=== PATIENT | female | born 2000 | race Two or more races ===

== ENCOUNTER 2024-11-14 09:41 | Outpatient (AMB) | payer MEDICAID, SELFPAY ==
[2024-11-14 09:48] VITALS: BP 118/80; PULSE 96; RESP 18; TEMP 36.4; O2SAT 98; BMI 31.8
--- NOTE | 2024-11-14 09:48 | OBCLNT_ITS ---
Vital Signs 11/14/24 09:48 Height 1.57 m Height Method Stated Weight 78.925 kg Weight Measurement Method Standing Scale BMI 31.8 BP 118/80 Blood Pressure Source Automatic Cuff Blood Pressure Location Left Upper Arm Position Sitting Respiration 18 Pulse 96 Pulse Source Monitor Temp 97.6 F Temp Source Oral Pulse Oximetry (%) 98 Oxygen Delivery Method Room Air Allergies/Home Meds Allergies & Medications Allergies No Known Allergies Allergy (Verified 11/14/24 09:49) Medication Reconciliation No Known Home Medications 11/14/24 [History Confirmed 11/14/24] Intake Visit Data Collection New Patient or Established: New Patient (never been to [facility]) Reason for Visit:: CARE Seen by Clinical Staff ONLY (RN/MA): No Linux Unix System Administrator Required: No Do You Feel Safe at Home: Yes Authorities Contacted: N/A PCP or OBGYN visit in last 3 months: Yes Hx Now: Yes Are you currently on any form of Control: No Last menstrual period: 04/28/24 Pain Present Currently: No Pain Scale Used: [place]-Us/Numerical Pain scale:: 0 Smoking Status Smoking Status: Former smoker Questionnaires Covid-19 Vaccine Questionnaire Has patient been vacinated for Covid-19 Have you been vacinated for Covid-19: No PHQ-9 PHQ-2 Over the last 2 weeks, how often have you been bothered by any of the following problems? 1. Little interest or pleasure in doing things: not at all 2. Feeling down, depressed, or hopeless: not at all Total score: 0 PHQ-9 3. Trouble falling or staying asleep, or sleeping too much: Not at all 4. Feeling tired or having little energy: Not at all 5. Poor appetite or overeating: Not at all 6. Feeling bad about yourself - or that you are a failure or have let yourself or your family down: Not at all 7. Trouble concentrating on things, such as reading the newspaper or watching television: Not at all 8. Moving or speaking so slowly that other people could have noticed? - Or the opposite - being so fidgety or restless that you have been moving around a lot more than usual: not at all 9. Thoughts that you would be better off or of hurting yourself in some way: Not at all Total score: 0 Source: Developed by Drs. Francisco Nunez, Anabel Kaiser, Kenyon Atkins and colleagues, with an educational dayana from [employer]. Depression screen completed yes Social History Living Situation History Lives With: Family Housing: House Tobacco History Smoking Status: Former smoker Second Hand Smoke Exposure: Yes Alcohol History Alcohol Intake: Never Substance Use History Substance Use: MARIJUANA Domestic Abuse History Do You Feel Safe at Home: Yes Past Medical History Past Medical History Have you ever been diagnosed with any of the following: Neurological Problems Cerebrovascular Accident (CVA): No Transient Ischemic Attacks (TIA): No Dementia: No Alzheimer's Disease: No Parkinson's Disease: No Brain Tumor: No Meningitis: No Seizures: No Haider's Palsy: No Cardiology Problems Myocardial Infarction: No Cardiac Arrhythmia: No Atrial Fibrillation: No Angina: No Heart Murmur: No Coronary Artery Disease: No Atherosclerotic Heart Disease: No Peripheral Vascular Disease: No Hypercholesterolemia: No Aneurysm: No Congestive Heart Failure: No Congenital Heart Disease: No Valvular Heart Disease: No Rheumatic Fever: No Hypertension: No (GRANDMOTHER) Respiratory Problems Chronic Obstructive Pulmonary Disease (COPD): No Asthma: No Bronchitis: No Tuberculosis: No Hx Cough: No Cough: No Wheezing: No Chest Deformities: No Smoking: Yes (MARIJUANA) Smoking Exposure: Yes Stomache/Intestinal Problems Liver Cancer: No Hepatitis: No Cirrhosis: No Pancreatic Cancer: No Pancreatitis: No Celiac Disease: No Gall Bladder Disease: No Gastrointestinal Bleed: No Genital/Urinary Problems Chronic Kidney Disease: No Renal Disease: No Kidney Stones: No Reproductive Problems Breast Cancer: No Endometriosis: No Fibroids: No Genital Herpes: No Gonorrhea: No Polycystic Ovarian Syndrome: No Previous Pregnancies: Yes Syphilis: No Uterine Prolapse: No Musculoskeletal Problems Muscular Dystrophy: No Myasthenia Gravis: No Marfan's Syndrome: No Bone Cancer: No Arthritis: No Rheumatoid Arthritis: No Head,Eye,Nose,Throat Problems Cataracts: No Glaucoma: No Blind: No Retinal Detachment: No Endocrine Problems Diabetes Mellitus Type 1: No Diabetes Mellitus Type 2: No (GRANDMOTHER) Blood Problems Anemia: No Leukemia: No Hemophilia: No Thalassemia: No Sickle Cell Disease: No Clotting Problems: No Psychologic Problems Schizophrenia: No Recreational Drug Use: No Bipolar Disorder: No Depression: No Anxiety: No Behavior Problems: No Self-Mutilation: No Attention Deficit Disorder: No Attention Deficit Hyperactivity Disorder: No Depression: No Post Traumatic Stress Disorder: No Eating Disorder: No Other Problems Hospitalization: No Autoimmune Disease: No Down Syndrome: No Autism: No Surgical History Angioplasty: No Appendectomy: No Bariatric Surgery: No Breast Surgery: No History of Present Illness HPI Narrative This is a 24-year-old 2 para 0 who comes for her first clinic visit today at [facility]. Her patient's last period was April 24, 2024. Giving due date January 29, 2025. First visit was at 7 weeks. Patient had an ultrasound and that confirmed dates Patient denies surgeries. Patient denies past medical history. Reports marijuana use prior to . Patient is A+, antibody screen negative, RPR nonreactive, rubella immune, hepatitis B negative, hep C negative, HIV was negative. Her GC and Chlamydia were negative. Third trimester labs were reviewed and are normal. Patient has been followed and [facility] for anatomy scan and NT scan. Carrier screens and Nipt were negative OB Initial Visit Menstrual History Menstrual reliability: definite Flow: normal Menstrual regularity: regular Monthly: Yes Age at menarche: 10 On control pills at conception: No Associated symptoms (LMP): Reports breast tenderness and irritability OB History : 2 Para: 0 Hx Total # of Abortions (Spontaneous & Elective): 1 # of Living Children: 0 Infection History & Risk Evaluation History of STDs: none Genetic Screening & History Genetic Screening/Teratology Counseling - Includes patient, baby's father, or anyone in either family with: 1. Patient's age 35 years or older as of estimated date of delivery: No 2. Thalassemia (Zimbabwean, Malagasy, Mediterranean, or Background); MCV less than 80: No 3. Neural Tube Defect (Meningomyelocele, Spina Bifida, or Anencephaly): No 4. Congenital Heart Defect: No 5. Down Syndrome: No 6. Abad-Sachs (Ashkenazi Rastafarian, Cajun, Telugu [place]): No 7. Lucas Disease (Ashkenazi Rastafarian): No 8. Familial Dysautonomia (Ashkenazi Rastafarian): No 9. Sickle Cell Disease or Trait (): No 10. Hemophilia or other blood disorders: No 11. Muscular Dystrophy: No 12. Cystic Fibrosis: No 13. Clayton's Chorea: No 14. Mental Retardation/Autism: No 15. Other inherited genetic or chromosomal disorder: No 16. Maternal Metabolic Disorder (EG,TYPE 1 Diabetes, PKU): No 17. Patient or baby's father had a child with defects not listed above: No 18. Recurrent loss or a stillbirth: No 19. Medications (including supplements, vitamins, herbs or otc drugs)/illicit/recreational drugs/alcohol since last menstrual period: No 20. Any other: No Infection History 1. Live with someone with TB or exposed to TB: No 2. Rash or viral illness since last menstrual period: No 3. Hepatitis B,C: No Other (see comments) Source: [employer] OB Flowsheet OB Flowsheet Initial Weight: Not Recorded Date -?-?-?-?-?-?-?-?-?-?-?-?- EGA Weight Edema CTX Effacement BP Fundal ht Pres Dilation Effacement Station Visit Note Alb Glu FHR Mov 11/14/24 -?-?-?-?-?-?-?-?-?-?-?-?- 29w 1d 78.925 kg absent absent 118/80 29 cephalic Patient asked if fetus active. Denies labor signs and symptoms. Continue to take iron twice a day. Discussed high iron foods with patient. Increase fluids. Walk 20 minutes a day. Reviewed 1 hour GTT lab results with patient. I discussed Tdap with patient and patient will consider Tdap for next visit 145 active Review of Systems Review of Systems Systems Reviewed: All systems reviewed, normal except as documented Psychiatric Psychiatric: Reports irritability Assessment & Plan Diagnosis / Problem List (1) : Status: Acute Qualifiers: Weeks of gestation: 29 weeks Qualified Code(s): Z3A.29 - 29 weeks ges tation of Plan Advised patient to continue iron twice a day. Discussed high iron foods. Increase fluids. Discussed regular exercise. Return precautions discussed with patient. I discussed Tdap with patient and patient will consider for next visit. Return in 3 weeks for OB check Additional Plan Follow Up: 3 Weeks Office Procedures OB Clinic LOC & Office Proc's Nursing/Assessment Patient Status: Initial/New Patient OB Clinic Nursing Assessment: Medication Reconciliation, Update PMH in EMR and Vital Signs OB Clinic Coordination of Care: Complex Care and Chronic Disease 1-5, Consent,records obtained, informed consent, Education Simp Pt/Fam, Results/Orders obtained and Staff clarify orders Special Needs: Heart tones New Patient Charge New Patient Point Assignment: 1119 New Patient Point Charge: ASSISTANT PROFESSOR OF ARCHAEOLOGY Level 4 ([id number])
--- NOTE | 2024-12-05 09:10 | AMB.OBVISIT ---
Vital Signs 11/14/24 09:48 12/05/24 09:18 Height 1.57 m Height Method Stated Weight 78.925 kg Weight Measurement Method Standing Scale BMI 31.8 BP 118/80 118/80 Blood Pressure Source Automatic Cuff Blood Pressure Location Left Upper Arm Position Sitting Respiration 18 18 Pulse 96 96 Pulse Source Monitor Temp 97.6 F 97.6 F Temp Source Oral Pulse Oximetry (%) 98 98 Oxygen Delivery Method Room Air Allergies/Home Meds Allergies & Medications Allergies No Known Allergies Allergy (Verified 12/05/24 09:05) Medication Reconciliation vits no.126-ferrous fum 28 mg iron-folic acid 800 mcg tablet (Classic ) tab PO 12/05/24 [History Confirmed 12/05/24] Intake Visit Data Collection Do You Feel Safe at Home: Yes Smoking Status Smoking Status: Former smoker Questionnaires Covid-19 Vaccine Questionnaire Has patient been vacinated for Covid-19 Have you been vacinated for Covid-19: No PHQ-9 PHQ-2 Over the last 2 weeks, how often have you been bothered by any of the following problems? 1. Little interest or pleasure in doing things: not at all PHQ-9 3. Trouble falling or staying asleep, or sleeping too much: Not at all 4. Feeling tired or having little energy: Not at all 5. Poor appetite or overeating: Not at all 6. Feeling bad about yourself - or that you are a failure or have let yourself or your family down: Not at all 7. Trouble concentrating on things, such as reading the newspaper or watching television: Not at all 8. Moving or speaking so slowly that other people could have noticed? - Or the opposite - being so fidgety or restless that you have been moving around a lot more than usual: not at all Source: Developed by Drs. Francisco Nunez, Anabel Kaiser, Kenyon Atkins and colleagues, with an educational dayana from [employer]. Social History Living Situation History Lives With: Family Housing: House Tobacco History Smoking Status: Former smoker Second Hand Smoke Exposure: Yes Alcohol History Alcohol Intake: Never Substance Use History Substance Use: MARIJUANA Domestic Abuse History Do You Feel Safe at Home: Yes Past Medical History Past Medical History Have you ever been diagnosed with any of the following: Neurological Problems Cerebrovascular Accident (CVA): No Transient Ischemic Attacks (TIA): No Dementia: No Alzheimer's Disease: No Parkinson's Disease: No Brain Tumor: No Meningitis: No Seizures: No Haider's Palsy: No Cardiology Problems Myocardial Infarction: No Cardiac Arrhythmia: No Atrial Fibrillation: No Angina: No Heart Murmur: No Coronary Artery Disease: No Atherosclerotic Heart Disease: No Peripheral Vascular Disease: No Hypercholesterolemia: No Aneurysm: No Congestive Heart Failure: No Congenital Heart Disease: No Valvular Heart Disease: No Rheumatic Fever: No Hypertension: No (GRANDMOTHER) Respiratory Problems Chronic Obstructive Pulmonary Disease (COPD): No Asthma: No Bronchitis: No Tuberculosis: No Hx Cough: No Cough: No Wheezing: No Chest Deformities: No Smoking: Yes (MARIJUANA) Smoking Exposure: Yes Stomache/Intestinal Problems Liver Cancer: No Hepatitis: No Cirrhosis: No Pancreatic Cancer: No Pancreatitis: No Celiac Disease: No Gall Bladder Disease: No Gastrointestinal Bleed: No Genital/Urinary Problems Chronic Kidney Disease: No Renal Disease: No Kidney Stones: No Reproductive Problems Breast Cancer: No Endometriosis: No Fibroids: No Genital Herpes: No Gonorrhea: No Polycystic Ovarian Syndrome: No Previous Pregnancies: Yes Syphilis: No Uterine Prolapse: No Musculoskeletal Problems Muscular Dystrophy: No Myasthenia Gravis: No Marfan's Syndrome: No Bone Cancer: No Arthritis: No Rheumatoid Arthritis: No Head,Eye,Nose,Throat Problems Cataracts: No Glaucoma: No Blind: No Retinal Detachment: No Endocrine Problems Diabetes Mellitus Type 1: No Diabetes Mellitus Type 2: No (GRANDMOTHER) Blood Problems Anemia: No Leukemia: No Hemophilia: No Thalassemia: No Sickle Cell Disease: No Clotting Problems: No Psychologic Problems Schizophrenia: No Recreational Drug Use: No Bipolar Disorder: No Depression: No Anxiety: No Behavior Problems: No Self-Mutilation: No Attention Deficit Disorder: No Attention Deficit Hyperactivity Disorder: No Depression: No Post Traumatic Stress Disorder: No Eating Disorder: No Other Problems Hospitalization: No Down Syndrome: No Autism: No Surgical History Angioplasty: No Appendectomy: No Bariatric Surgery: No Breast Surgery: No Visit OB Visit Log OB Flowsheet Initial Weight: Not Recorded Date <del>?</del> EGA Weight Edema CTX Effacement BP Fundal ht Pres Dilation Effacement Station Visit Note Alb Glu FHR Mov 11/14/24 <del>?</del> 28w 1d 78.925 kg absent absent 118/80 118/80 29 cephalic Patient asked if fetus active. Denies labor signs and symptoms. Continue to take iron twice a day. Discussed high iron foods with patient. Increase fluids. Walk 20 minutes a day. Reviewed 1 hour GTT lab results with patient. I discussed Tdap with patient and patient will consider Tdap for next visit 145 active SUZETTE Calculator Estimated Delivery Date Method Current WG Current Estimate 02/05/25 Ultrasound #1 31w 1d Other Estimates 01/29/25 LMP (Certain) 32w 1d Assessment & Plan Diagnosis / Problem List (1) Normal in multigravida in third trimester: Status: Acute Additional Plan Follow Up: 3 Weeks Office Procedures OB Clinic LOC & Office Proc's Nursing/Assessment Patient Status: Initial/New Patient OB Clinic Nursing Assessment: Medication Reconciliation, Update PMH in EMR and Vital Signs OB Clinic Coordination of Care: Complex Care and Chronic Disease 1-5, Consent,records obtained, informed consent, Education Simp Pt/Fam, Results/Orders obtained and Staff clarify orders Special Needs: Heart tones New Patient Charge New Patient Point Assignment: 1119 New Patient Point Charge: CLUB WAITER/WAITRESS Level 4 ([id number])
== END 2024-11-14 10:15 | disposition home or self-care (01) ==
LOC: HODSOBC 09:41
PROVIDERS: PCP Advanced Practice Midwife; Referring Provider Advanced Practice Midwife; Supervising Provider Advanced Practice Midwife; Visit Provider Advanced Practice Midwife
DX: Z34.83 Encounter for supervision of other normal pregnancy, third trimester (principal); Z3A.29 29 weeks gestation of pregnancy
CPT/HCPCS: 99204; G0463

== ENCOUNTER 2024-12-05 08:55 | Outpatient (AMB) | payer MEDICAID, SELFPAY ==
[2024-12-05 09:04] VITALS: BP 124/84; PULSE 97; RESP 18; TEMP 36.3; O2SAT 99; BMI 32.2
--- NOTE | 2024-12-05 09:04 | OBCLNT_ITS ---
Vital Signs 12/05/24 09:04 Height 1.57 m Height Method Stated Weight 79.492 kg Weight Measurement Method Standing Scale BMI 32.2 BP 124/84 Blood Pressure Source Automatic Cuff Blood Pressure Location Right Upper Arm Position Sitting Respiration 18 Pulse 97 Pulse Source Monitor Temp 97.4 F Temp Source Temporal Artery Scan Pulse Oximetry (%) 99 Oxygen Delivery Method Room Air Allergies/Home Meds Allergies & Medications Allergies No Known Allergies Allergy (Verified 12/05/24 09:05) Medication Reconciliation vits no.126-ferrous fum 28 mg iron-folic acid 800 mcg tablet (Classic ) tab PO 12/05/24 [History Confirmed 12/05/24] Intake Visit Data Collection New Patient or Established: Established Patient (seen at [facility] within 3 years) Reason for Visit:: obc Do You Feel Safe at Home: Yes Authorities Contacted: N/A PCP or OBGYN visit in last 3 months: Yes Pain Present Currently: No Smoking Status Smoking Status: Former smoker Questionnaires Covid-19 Vaccine Questionnaire Has patient been vacinated for Covid-19 Have you been vacinated for Covid-19: Yes PHQ-9 PHQ-2 Over the last 2 weeks, how often have you been bothered by any of the following problems? 1. Little interest or pleasure in doing things: not at all 2. Feeling down, depressed, or hopeless: not at all Total score: 0 PHQ-9 8. Moving or speaking so slowly that other people could have noticed? - Or the opposite - being so fidgety or restless that you have been moving around a lot more than usual: not at all Source: Developed by Drs. Francisco Nunez, Anabel Kaiser, Kenyon Atkins and colleagues, with an educational dayana from [employer]. Depression screen completed yes Social History Living Situation History Lives With: Family Housing: House Tobacco History Smoking Status: Former smoker Second Hand Smoke Exposure: Yes Alcohol History Alcohol Intake: Never Substance Use History Substance Use: MARIJUANA Domestic Abuse History Do You Feel Safe at Home: Yes Past Medical History Past Medical History Have you ever been diagnosed with any of the following: Neurological Problems Cerebrovascular Accident (CVA): No Transient Ischemic Attacks (TIA): No Dementia: No Alzheimer's Disease: No Parkinson's Disease: No Brain Tumor: No Meningitis: No Seizures: No Haider's Palsy: No Cardiology Problems Myocardial Infarction: No Cardiac Arrhythmia: No Atrial Fibrillation: No Angina: No Heart Murmur: No Coronary Artery Disease: No Atherosclerotic Heart Disease: No Peripheral Vascular Disease: No Hypercholesterolemia: No Aneurysm: No Congestive Heart Failure: No Congenital Heart Disease: No Valvular Heart Disease: No Rheumatic Fever: No Hypertension: No (GRANDMOTHER) Respiratory Problems Chronic Obstructive Pulmonary Disease (COPD): No Asthma: No Bronchitis: No Tuberculosis: No Hx Cough: No Cough: No Wheezing: No Chest Deformities: No Smoking: Yes (MARIJUANA) Smoking Exposure: Yes Stomache/Intestinal Problems Liver Cancer: No Hepatitis: No Cirrhosis: No Pancreatic Cancer: No Pancreatitis: No Celiac Disease: No Gall Bladder Disease: No Gastrointestinal Bleed: No Genital/Urinary Problems Renal Disease: No Kidney Stones: No Reproductive Problems Breast Cancer: No Endometriosis: No Fibroids: No Genital Herpes: No Gonorrhea: No Polycystic Ovarian Syndrome: No Previous Pregnancies: Yes Syphilis: No Uterine Prolapse: No Musculoskeletal Problems Muscular Dystrophy: No Myasthenia Gravis: No Marfan's Syndrome: No Bone Cancer: No Arthritis: No Rheumatoid Arthritis: No Head,Eye,Nose,Throat Problems Cataracts: No Glaucoma: No Blind: No Retinal Detachment: No Endocrine Problems Diabetes Mellitus Type 1: No Diabetes Mellitus Type 2: No (GRANDMOTHER) Blood Problems Anemia: No Leukemia: No Hemophilia: No Thalassemia: No Sickle Cell Disease: No Clotting Problems: No Psychologic Problems Schizophrenia: No Recreational Drug Use: No Bipolar Disorder: No Depression: No Anxiety: No Behavior Problems: No Self-Mutilation: No Attention Deficit Disorder: No Attention Deficit Hyperactivity Disorder: No Depression: No Post Traumatic Stress Disorder: No Eating Disorder: No Other Problems Hospitalization: No Down Syndrome: No Autism: No Surgical History Angioplasty: No Appendectomy: No Bariatric Surgery: No Breast Surgery: No Visit OB Visit Log OB Flowsheet Initial Weight: Not Recorded Date -?-?-?-?-?-?-?-?-?-?-?-?- EGA Weight Edema CTX Effacement BP Fundal ht Pres Dilation Effacement Station Visit Note Alb Glu FHR Mov 11/14/24 -?-?-?-?-?-?-?-?-?-?-?-?- 28w 1d 78.925 kg absent absent 118/80 29 cephalic Patient asked if fetus active. Denies labor signs and symptoms. Continue to take iron twice a day. Discussed high iron foods with patient. Increase fluids. Walk 20 minutes a day. Reviewed 1 hour GTT lab results with patient. I discussed Tdap with patient and patient will consider Tdap for next visit 145 active 12/05/24 -?-?-?-?-?-?-?-?-?-?-?-?- 31w 1d 79.492 kg absent absent 124/84 30 cephalic Reports good movement. Denies labor symptoms. Denies leaking or bleeding. Patient elects to have Tdap today. Discussed diet and weight gain. Courage patient to walk 40 minutes a day. Tdap vaccine today. Schedule ultrasound for growth. And return in 2 weeks. UA: pro-,NIT-, Natali:trace 145 active SUZETTE Calculator Estimated Delivery Date Method Current WG Current Estimate 02/05/25 Ultrasound #1 31w 1d Other Estimates 01/29/25 LMP (Certain) 32w 1d Assessment & Plan Diagnosis / Problem List (1) Normal in multigravida in third trimester: Status: Acute (2) : Status: Acute Qualifiers: Weeks of gestation: 29 weeks Qualified Code(s): Z3A.29 - 29 weeks gestation of Plan Tdap today. Encourage patient to walk 40 minutes a day. Discussed decreasing sugary foods. kick count discussed with patient. Continue vitamins. Ultrasound to evaluate growth. Return in 2 weeks OB check Additional Plan Follow Up: 2 Weeks (OBC) Office Procedures OB Clinic LOC & Office Proc's Nursing/Assessment Patient Status: Established Patient OB Clinic Nursing Assessment: Medication Reconciliation, Update PMH in EMR and Vital Signs OB Clinic Coordination of Care: Complex Care and Chronic Disease 1-5, Education Complex Pt/Fam and Staff clarify orders Special Needs: Heart tones Established Patient Charge Established Patient Point Assignment: 115 Established Patient Point Charge: EP Level 3 (80-115) Injection/Vaccine Admin SQ Im Injection: Yes Medication Given Medication Given Medication Given: Yes Documented Dose Given: 0.5 Route: IM Immunizations Adacel(Tdap Adolesn/Adult)(PF) 2 Lf-(2.5-5-3-5)-5 Lf/0.5 mL IM syringe Performing Provider: Mallika Stanley CNM Performing Location: [facility] Administered by: Venkat Singleton MA on 12/05/24 09:18 Dose Route Admin Location Dispensed Lot Number Expiration Date [facility] Writing Manager 0.5 mL IM Left Deltoid 0.5 mL [id number] 10/28/26 [id number] [employer] LS15 VIS Given Date VIS Provided VIS Publication Date 12/05/24 Single Vaccine 24 Eligibility Eligibility Date Funding Source Private Funds
== END 2024-12-05 09:16 | disposition home or self-care (01) ==
LOC: HODSOBC 08:55
PROVIDERS: Supervising Provider Advanced Practice Midwife; Visit Provider Advanced Practice Midwife
DX: Z34.83 Encounter for supervision of other normal pregnancy, third trimester (principal); Z3A.31 31 weeks gestation of pregnancy; Z23 Encounter for immunization
CPT/HCPCS: 90471; 90715; 96372; 99213; G0463

== ENCOUNTER 2024-12-19 08:59 | Outpatient (AMB) | payer MEDICAID, SELFPAY ==
[2024-12-19 09:11] VITALS: BP 127/78; PULSE 98; RESP 18; TEMP 37.1; O2SAT 97; BMI 32.2
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
[2024-12-19 11:26] LABS: Bilirubin,Urine Clinitek Negative (Negative); Blood,Urine Clinitek Negative (Negative); Glucose, Urine Clinitek Negative (Negative); Ketones,Urine Clinitek 1+ (Negative); Leukocyte Esterase,Urine Clin Negative (Negative); Nitrite,Urine Clinitek Negative (Negative); PH,Urine Clinitek 7.5 (5.0-7.0); Protein,Urine Clinitek Negative (Neg - Trace); Urobilinogen,Urine Clinitek 0.2 mg/dL (0.0-1.0)
== END 2024-12-19 09:47 | disposition home or self-care (01) ==
LOC: HODSOBC 08:59
PROVIDERS: Supervising Provider Advanced Practice Midwife; Visit Provider Advanced Practice Midwife
DX: Z34.83 Encounter for supervision of other normal pregnancy, third trimester (principal); Z3A.34 34 weeks gestation of pregnancy
CPT/HCPCS: 81001; 99213; G0463

== ENCOUNTER 2025-01-02 08:33 | Outpatient (AMB) | payer MEDICAID, SELFPAY ==
[2025-01-02 08:41] VITALS: BP 142/93; PULSE 100; RESP 20; TEMP 36.6; O2SAT 99; BMI 33.3
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
== END 2025-01-02 09:11 | disposition home or self-care (01) ==
LOC: HODSOBC 08:33
PROVIDERS: Supervising Provider Advanced Practice Midwife; Visit Provider Advanced Practice Midwife
DX: Z34.83 Encounter for supervision of other normal pregnancy, third trimester (principal); Z3A.36 36 weeks gestation of pregnancy; Z87.891 Personal history of nicotine dependence
CPT/HCPCS: 99214; G0463

== ENCOUNTER 2025-01-09 08:38 | Outpatient (AMB) | payer MEDICAID, SELFPAY ==
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
[2025-01-09 08:55] VITALS: BP 129/85; PULSE 87; RESP 18; TEMP 36.2; O2SAT 98; BMI 32.8
== END 2025-01-09 09:13 | disposition home or self-care (01) ==
LOC: HODSOBC 08:38
PROVIDERS: Supervising Provider Advanced Practice Midwife; Visit Provider Advanced Practice Midwife
DX: Z34.03 Encounter for supervision of normal first pregnancy, third trimester (principal); Z3A.37 37 weeks gestation of pregnancy
CPT/HCPCS: 99213; G0463

== ENCOUNTER 2025-01-16 09:37 | Outpatient (AMB) | payer MEDICAID, SELFPAY ==
[2025-01-16 09:58] VITALS: BP 132/86; PULSE 100; RESP 18; TEMP 36; O2SAT 98; BMI 33.5
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
== END 2025-01-16 10:22 | disposition home or self-care (01) ==
LOC: HODSOBC 09:37
PROVIDERS: Supervising Provider Advanced Practice Midwife; Visit Provider Advanced Practice Midwife
DX: Z34.83 Encounter for supervision of other normal pregnancy, third trimester (principal); Z3A.38 38 weeks gestation of pregnancy; Z87.891 Personal history of nicotine dependence
CPT/HCPCS: 99213; G0463

== ENCOUNTER 2025-01-16 11:10 | Observation (INO) | payer MEDICAID, SELFPAY ==
[2025-01-16 11:13] VITALS: BMI 34.6
--- NOTE | 2025-01-16 11:15 | XR_ITS ---
Examination: Complete OB ultrasound greater than 14 weeks Date and time of exam: January 16, 2025 1159 hours INDICATIONS: -induced hypertension today Findings: Viable intrauterine single fetus with single amniotic sac presentation cephalic spine maternal left Cardiac motion 141 BPM Placenta fundal grade 2 Umbilical cord insertion 3 vessel seen Amniotic fluid index 14.1 cm Cervix 3.2 cm Ovaries obscured by bowel gas. Composite estimated gestational age based on BPD, head circumference, abdominal circumference, femur length is 38 weeks 1 day Estimated weight 3226.1 g. Survey of intracranial anatomy, spinal anatomy, abdominal anatomy, four-chamber heart performed with no abnormalities identified. Impression: Viable intrauterine gestation cephalic presentation.
[2025-01-16 11:20] VITALS: BP 140/95; PULSE 100
[2025-01-16 11:23] VITALS: BP 140/95; PULSE 100; RESP 18; RESP 99; TEMP 37.2
[2025-01-16 11:37] VITALS: BP 135/85; PULSE 98
[2025-01-16 11:52] VITALS: BP 127/86; PULSE 95
[2025-01-16 12:06] LABS: Collection Type, Urine Clean Catch; Squamous Epithelial Cell,Urine 0 /hpf (0-5)
[2025-01-16 12:13] LABS: Basophils % (Auto) 0 % (0-2.5); Eosinophils # (Auto) 0.1 Thou/mm3 (0.0-0.5); Eosinophils % (Auto) 1 % (0-10); Hematocrit 28.3 % (36.0-46.0); Hemoglobin 9.6 g/dL (12.0-16.0); Immature Granulocytes % (Auto) 1 % (0-0); Immature Granulocytes Auto 0.06 Thou/mm3 (0.00-0.00); Lymphocytes # (Auto) 1.1 Thou/mm3 (1.0-4.8); Lymphocytes % (Auto) 16 % (10-50); Mean Corpuscular HGB Conc 33.9 g/dl (31.0-37.0); Mean Corpuscular Hemoglobin 24.4 pg (25.0-35.0); Mean Corpuscular Volume 72 fL (80-100); Monocytes # (Auto) 0.4 Thou/mm3 (0.0-0.8); Monocytes % (Auto) 6 % (0-12); Neutrophils # (Auto) 5.5 Thou/mm3 (1.8-7.7); Neutrophils % (Auto) 76 % (37-80); Nucleated Red Blood Cell % 0 /100 WBC (0); Platelet Count 198 Thou/mm3 (140-440); RDW Standard Deviation 43.8 fL (36.4-46.3); Red Blood Count 3.94 Miln/mm3 (4.00-5.20); White Blood Count 7.2 Thou/mm3 (3.6-11.0)
[2025-01-16 12:19] LABS: Amorphous Crystals,Urine Present (Absent); Bilirubin,Urine Negative (Negative); Blood,Urine 1+ (Negative); Color,Urine Yellow (Lt Yel-Yel); Glucose, Urine Negative (Negative); Ketones,Urine Negative (Negative); Leukocyte Esterase,Urine Positive (Negative); Nitrite,Urine Negative (Negative); Protein,Urine Trace (Neg - Trace); RBC,Urine 3 /hpf (0-3); Specific Gravity,Urine 1.021 (1.001-1.035); Urobilinogen,Urine Negative mg/dL (0.0-1.0); WBC,Urine 26 /hpf (0-5)
[2025-01-16 12:41] LABS: Alanine Aminotransferase 9 U/L (10-49); Albumin, Serum 3.6 gm/dL (3.5-5.0); Albumin/Globulin Ratio 1.6 (1.2-2.2); Alkaline Phosphatase 180 U/L (46-116); Anion Gap 12 (7-16); BUN/Creatinine Ratio 11 Ratio (12-20); Bilirubin,Total 0.3 mg/dL (0.3-1.2); Blood Urea Nitrogen 8 mg/dL (9-23); Calcium (Corrected) 9.3 mg/dL (8.5-10.1); Carbon Dioxide 22.9 mMol/L (20.0-31.0); Chloride 106 mMol/L (98-107); Creatinine (Component) 0.7 mg/dL (0.6-1.3); Globulin 2.2 gm/dL (2.3-3.5); Glucose 114 mg/dL (74-106); Osmolality,Calculated 280 (275-295); Potassium 3.9 mMol/L (3.4-5.1); Sodium 141 mMol/L (136-145); Total Protein 5.8 gm/dL (5.7-8.2); eGFR > 60 See Note
[2025-01-16 12:56] LABS: Clarity,Urine Cloudy (Clear/Hazy)
[2025-01-16 13:07] LABS: Fibrinogen 462 mg/dL (175-375); INR 0.9 (0.9-1.3); Partial Thromboplastin Time 23.9 Seconds (22.0-36.0); Prothrombin Time 10.3 Seconds (9.0-12.2)
[2025-01-16 13:11] LABS: Aspartate Amino Transferase 17 U/L (0-34)
== END 2025-01-16 13:36 | disposition home or self-care (01) ==
PROVIDERS: Admitting Provider Obstetrics & Gynecology; Visit Provider Advanced Practice Midwife
DX: Z34.83 Encounter for supervision of other normal pregnancy, third trimester (principal); Z3A.38 38 weeks gestation of pregnancy
CPT/HCPCS: 36415; 59025; 59899; 76805; 80053; 81001; 84450; 84550; 85025; 85384; 85610; 85730

== ENCOUNTER 2025-01-23 09:28 | Outpatient (AMB) | payer MEDICAID, SELFPAY ==
[2025-01-23 09:41] VITALS: BP 129/89; PULSE 88; RESP 17; TEMP 36.3; O2SAT 99
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
== END 2025-01-23 10:04 | disposition home or self-care (01) ==
LOC: HODSOBC 09:28
PROVIDERS: Supervising Provider Advanced Practice Midwife; Visit Provider Advanced Practice Midwife
DX: Z34.83 Encounter for supervision of other normal pregnancy, third trimester (principal); Z3A.39 39 weeks gestation of pregnancy; Z87.891 Personal history of nicotine dependence
CPT/HCPCS: 99213; G0463

== ENCOUNTER 2025-01-23 10:16 | Outpatient (CLI) | payer MEDICAID, SELFPAY ==
[2025-01-23] VITALS (30 sets, daily range): BP systolic 119–132; BP diastolic 76–93; PULSE 76–102; RESP 14–100; TEMP 36.6–36.7; O2SAT 98–100; BMI 33.3
[2025-01-23 11:12] LABS: Collection Type, Urine Clean Catch
[2025-01-23 11:22] LABS: Basophils % (Auto) 0 % (0-2.5); Eosinophils # (Auto) 0.1 Thou/mm3 (0.0-0.5); Eosinophils % (Auto) 1 % (0-10); Hematocrit 31.8 % (36.0-46.0); Hemoglobin 10.4 g/dL (12.0-16.0); Immature Granulocytes % (Auto) 1 % (0-0); Immature Granulocytes Auto 0.04 Thou/mm3 (0.00-0.00); Lymphocytes # (Auto) 1.3 Thou/mm3 (1.0-4.8); Lymphocytes % (Auto) 16 % (10-50); Mean Corpuscular HGB Conc 32.7 g/dl (31.0-37.0); Mean Corpuscular Volume 73 fL (80-100); Monocytes # (Auto) 0.6 Thou/mm3 (0.0-0.8); Monocytes % (Auto) 8 % (0-12); Neutrophils # (Auto) 5.8 Thou/mm3 (1.8-7.7); Neutrophils % (Auto) 75 % (37-80); Nucleated Red Blood Cell % 0 /100 WBC (0); Platelet Count 241 Thou/mm3 (140-440); RDW Standard Deviation 46.7 fL (36.4-46.3); Red Blood Count 4.34 Miln/mm3 (4.00-5.20); White Blood Count 7.8 Thou/mm3 (3.6-11.0)
[2025-01-23 11:46] LABS: Alanine Aminotransferase 9 U/L (10-49); Albumin, Serum 3.9 gm/dL (3.5-5.0); Albumin/Globulin Ratio 1.6 (1.2-2.2); Alkaline Phosphatase 209 U/L (46-116); Anion Gap 9 (7-16); Aspartate Amino Transferase 16 U/L (0-34); BUN/Creatinine Ratio 8 Ratio (12-20); Bilirubin,Total 0.4 mg/dL (0.3-1.2); Blood Urea Nitrogen 6 mg/dL (9-23); Calcium (Corrected) 9.1 mg/dL (8.5-10.1); Carbon Dioxide 20.6 mMol/L (20.0-31.0); Chloride 108 mMol/L (98-107); Creatinine (Component) 0.8 mg/dL (0.6-1.3); Estimated Creatinine Clearance 106.1 mL/min (>60); Globulin 2.4 gm/dL (2.3-3.5); Glucose 81 mg/dL (74-106); LDH (Lactate Dehydrogenase) 208 U/L (120-246); Osmolality,Calculated 272 (275-295); Potassium 3.8 mMol/L (3.4-5.1); Sodium 138 mMol/L (136-145); Total Protein 6.3 gm/dL (5.7-8.2); Uric Acid 5.2 mg/dL (3.1-7.8); eGFR > 60 See Note
[2025-01-23 11:50] LABS: Bilirubin,Urine Negative (Negative); Blood,Urine Negative (Negative); Clarity,Urine Clear (Clear/Hazy); Color,Urine Yellow (Lt Yel-Yel); Glucose, Urine Negative (Negative); Ketones,Urine Negative (Negative); Leukocyte Esterase,Urine Negative (Negative); Nitrite,Urine Negative (Negative); PH,Urine 6.5 (5.0-7.0); Protein,Urine 1+ (Neg - Trace); RBC,Urine 2 /hpf (0-3); Squamous Epithelial Cell,Urine 4 /hpf (0-5); WBC,Urine 2 /hpf (0-5)
[2025-01-23 12:05] LABS: Fibrinogen 454 mg/dL (175-375); INR 0.9 (0.9-1.3); Prothrombin Time 10.2 Seconds (9.0-12.2)
== END 2025-01-23 12:33 | disposition home or self-care (01) ==
LOC: S4S1 10:17 → S4SX 10:18
PROVIDERS: Referring Provider Advanced Practice Midwife; Visit Provider Advanced Practice Midwife
DX: Z34.83 Encounter for supervision of other normal pregnancy, third trimester (principal); Z36.89 Encounter for other specified antenatal screening; Z3A.39 39 weeks gestation of pregnancy
CPT/HCPCS: 36415; 59025; 80053; 81001; 83615; 84550; 85025; 85384; 85610; 85730

== ENCOUNTER 2025-01-31 09:54 | Outpatient (AMB) | payer MEDICAID, SELFPAY ==
[2025-01-31 10:04] VITALS: BP 137/95; PULSE 89; RESP 17; TEMP 36.4; O2SAT 99
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
== END 2025-01-31 10:27 | disposition home or self-care (01) ==
LOC: HODSOBC 09:54
PROVIDERS: PCP Obstetrics & Gynecology; Referring Provider Obstetrics & Gynecology; Supervising Provider Obstetrics & Gynecology; Visit Provider Obstetrics & Gynecology
DX: O09.893 Supervision of other high risk pregnancies, third trimester (principal); O10.913 Unspecified pre-existing hypertension complicating pregnancy, third trimester; O48.0 Post-term pregnancy; Z3A.40 40 weeks gestation of pregnancy; Z87.891 Personal history of nicotine dependence
CPT/HCPCS: 99213; G0463

== ENCOUNTER 2025-01-31 20:05 | Inpatient (IN) | payer MEDICAID, SELFPAY ==
[2025-01-31] VITALS (31 sets, daily range): BP systolic 121–175; BP diastolic 71–103; PULSE 67–98; RESP 18; TEMP 36.8; O2SAT 95–100; BMI 33.9
[2025-01-31 21:23] LABS: Basophils % (Auto) 0 % (0-2.5); Eosinophils # (Auto) 0.1 Thou/mm3 (0.0-0.5); Eosinophils % (Auto) 1 % (0-10); Hematocrit 28.3 % (36.0-46.0); Hemoglobin 9.2 g/dL (12.0-16.0); Immature Granulocytes % (Auto) 0 % (0-0); Immature Granulocytes Auto 0.02 Thou/mm3 (0.00-0.00); Lymphocytes # (Auto) 1.3 Thou/mm3 (1.0-4.8); Lymphocytes % (Auto) 22 % (10-50); Mean Corpuscular HGB Conc 32.5 g/dl (31.0-37.0); Mean Corpuscular Hemoglobin 23.7 pg (25.0-35.0); Mean Corpuscular Volume 73 fL (80-100); Monocytes # (Auto) 0.4 Thou/mm3 (0.0-0.8); Monocytes % (Auto) 7 % (0-12); Neutrophils # (Auto) 4.3 Thou/mm3 (1.8-7.7); Neutrophils % (Auto) 70 % (37-80); Nucleated Red Blood Cell % 0 /100 WBC (0); Platelet Count 138 Thou/mm3 (140-440); RDW Standard Deviation 47.5 fL (36.4-46.3); Red Blood Count 3.88 Miln/mm3 (4.00-5.20); White Blood Count 6.1 Thou/mm3 (3.6-11.0)
[2025-01-31] MEDS: MISOPROSTOL 50 mCg TABLET 25 MCG VAGINAL (21:43)
[2025-01-31 21:52] LABS: Fibrinogen 430 mg/dL (175-375); INR 0.9 (0.9-1.3); Partial Thromboplastin Time 21.1 Seconds (22.0-36.0); Prothrombin Time 10.4 Seconds (9.0-12.2)
[2025-01-31 22:01] LABS: Alanine Aminotransferase 9 U/L (10-49); Albumin, Serum 3.9 gm/dL (3.5-5.0); Albumin/Globulin Ratio 1.7 (1.2-2.2); Alkaline Phosphatase 214 U/L (46-116); Anion Gap 13 (7-16); Aspartate Amino Transferase 19 U/L (0-34); BUN/Creatinine Ratio 9 Ratio (12-20); Bilirubin,Total 0.3 mg/dL (0.3-1.2); Blood Urea Nitrogen 7 mg/dL (9-23); Calcium (Corrected) 9.1 mg/dL (8.5-10.1); Carbon Dioxide 20.3 mMol/L (20.0-31.0); Chloride 106 mMol/L (98-107); Creatinine (Component) 0.8 mg/dL (0.6-1.3); Estimated Creatinine Clearance 107.2 mL/min (>60); Globulin 2.3 gm/dL (2.3-3.5); Glucose 94 mg/dL (74-106); Osmolality,Calculated 275 (275-295); Potassium 3.8 mMol/L (3.4-5.1); Sodium 139 mMol/L (136-145); Syphilis Nonreactive (Nonreactive); Total Protein 6.2 gm/dL (5.7-8.2); Uric Acid 5.3 mg/dL (3.1-7.8); eGFR > 60 See Note
[2025-01-31 22:17] LABS: Amphetamine/Metham Scrn,Ur OB Negative (Negative); Benzoylecgonine Screen, Ur OB Negative (Negative); Creatinine,Random Urine 149 mg/dL (30-125); Opiate Screen,Urine OB Negative (Negative); Protein Total, Random Urine 78 mg/dL (1-14); THC Screen,Urine OB Positive (Negative)
[2025-01-31 22:18] LABS: THC U Confirm* See Sep Rpt
[2025-01-31 22:40] LABS: Bacteria,Urine Rare; Bilirubin,Urine Negative (Negative); Blood,Urine Negative (Negative); Clarity,Urine Clear (Clear/Hazy); Collection Type, Urine Clean Catch; Color,Urine Lt-Yellow (Lt Yel-Yel); Glucose, Urine Negative (Negative); Ketones,Urine Negative (Negative); Leukocyte Esterase,Urine Negative (Negative); Nitrite,Urine Negative (Negative); Protein,Urine 1+ (Neg - Trace); RBC,Urine 0 /hpf (0-3); Specific Gravity,Urine 1.023 (1.001-1.035); Squamous Epithelial Cell,Urine 13 /hpf (0-5); Urobilinogen,Urine Negative mg/dL (0.0-1.0); WBC,Urine 0 /hpf (0-5)
[2025-02-01] VITALS (355 sets, daily range): BP systolic 110–167; BP diastolic 63–110; PULSE 60–132; RESP 16–18; TEMP 36.6–38.2; O2SAT 72–100
[2025-02-01] MEDS: MISOPROSTOL 50 mCg TABLET 25 MCG VAGINAL (01:53)
[2025-02-01] MEDS: fentaNYL CIT INJ 50 mCg/ML AMP 2ML 100 MCG IVP ×2 (06:27→08:39)
[2025-02-01] MEDS: ONDANSETRON INJ 2 MG/ML INJ 2 ML 4 MG IVP (06:34)
--- NOTE | 2025-02-01 06:43 | PD.LDHP ---
Documentation for date of: 02/01/25 OB Labor/Induct. HPI History of Present Illness Chief complaint: induction of labor : 2 Para: 0 Term pregnancies: 0 pregnancies: 0 Living children: 0 History of Abortions: Spontaneous and Elective: 1 History of Vaginal deliveries: 0 History of sections: No History of : No Date of last menstrual period: 04/24/24 SUZETTE: 01/29/25 Gestational Age (weeks): 40 Gestational Age (days): 3 Gestational age based on last menstrual period: 40 History of present illness: Patient presents for scheduled induction of labor. Indication: GHTN. No regular/painful ctx. No LOF. No vaginal bleeding. Normal movement. No COLÓN, vision changes, RUQ pain. History of Present Dating criteria: LMP confirmed by 1st trimester US Adequate Care: Yes Narrative: : current complicated by anemia, early THC use, GHTN Labs Maternal Blood Type: A Pos Labs: Positive: Rubella Titre, Negative: RPR, Hepatitis B, HIV, Chlamydia and Gonorrhea and Unknown: Herpes Type 1, Herpes Type 2 and Group Beta Strep Narrative: A+,abs-, rpr;;nr, rub imm, hbsag-,hiv-, HC-, GC/CT-, +THC, 3rd tri lab wnl, GBS- Review of Systems Review of Systems Narrative Review of Systems: Review of Systems Systems Reviewed: All systems reviewed, normal except as documented Constitutional Constitutional: Denies body ache(s), Denies chills, Denies fever(s) and Denies headache(s) ENT Ears, Nose, Mouth, and Throat: Denies headache(s) and Denies vertigo Cardiovascular Cardiovascular: Denies chest pain, Denies palpitations, Denies dyspnea and Denies syncope Respiratory Respiratory: Denies cough, Denies dyspnea Gastrointestinal Gastrointestinal: Denies nausea and Denies vomiting Neurologic Neurologic: Denies convulsions, Denies headache(s), Denies other visual disturbances, Denies syncope and Denies vertigo Past Medical History Family History OTHER FAMILY HX: non-contributory Surgical History SURGICAL: Negative Section Social History SOCIAL: Good support. Former smoker. THC use up to 1st trimester. No ETOH. Past Medical History Comments PMH COMMENT: Benign Meds Home Medications and Allergies Home Medications ?Medication ?Instructions ?Recorded ?Confirmed ?Type vits no.126-ferrous fum 1 tab PO .q day 12/05/24 01/31/25 History 28 mg iron-folic acid 800 mcg tablet (Classic ) ferrous sulfate 325 mg (65 mg 325 mg PO .q day 01/23/25 01/31/25 History iron) tablet Allergies Allergy/AdvReac Type Severity Reaction Status Date / Time No Known Allergies Allergy Verified 01/31/25 20:31 OB Exam Physical Exam Vital signs: Temp Pulse Resp BP Pulse Ox O2 Del Method 97.8 F 83 17 126/87 H 97 Room Air 02/01/25 04:30 02/01/25 06:16 02/01/25 04:30 02/01/25 06:16 02/01/25 06:39 02/01/25 04:30 Narrative: General: well developed, well nourished, no acute distress, conversant Cardiac: normal heart rate Lungs: breathing without distress Abdomen: soft, gravid, non-tender, no rebound or guarding Extremities: no edema BLE Detailed Labor and Delivery Exam Dilation (cm): ft Effacement (%): 50 Cervix position: posterior station: -3 Consistency: medium Presentation: Vertex Membranes: intact monitor accelerations: 15x15 monitor decelerations: None FDC variability: Moderate (11-25) Contraction frequency (min): irregular OB Results Labs 01/31/25 20:33 01/31/25 20:33 Labs: Short CBC 01/31/25 Range/Units 20:33 WBC 6.1 (3.6-11.0) Thou/mm3 Hgb 9.2 L (12.0-16.0) g/dL Hct 28.3 L (36.0-46.0) % Plt Count 138 L D (140-440) Thou/mm3 BMP 01/31/25 20:33 Sodium 139 Potassium 3.8 Chloride 106 Carbon Dioxide 20.3 BUN 7 L Creatinine 0.8 Glucose 94 Calcium 9.0 Liver Function 01/31/25 Range/Units 20:33 Total Bilirubin 0.3 (0.3-1.2) mg/dL AST 19 (0-34) U/L ALT 9 L (10-49) U/L Alkaline Phosphatase 214 H (46-116) U/L Albumin 3.9 (3.5-5.0) gm/dL Urine 01/31/25 Range/Units 20:33 Urine Color Lt-Yellow (Lt Yel-Yel) Urine Clarity Clear (Clear/Hazy) Urine pH 7.0 (5.0-7.0) Ur Specific [place] 1.023 (1.001-1.035) Urine Protein 1+ A (Neg - Trace) Urine Glucose (UA) Negative (Negative) OB Assessment & Plan Assessment and Plan (1) Post-dates : Status: Acute Assessment and plan: Francia is a 24yo with SIUP at 40&3wk presenting for IOL for pre-eclampsia withOUT severe features based on occasions of mild range bp's and urine p:c 0.5. Other PIH labs wnl. No other s/sx of pre-E. SCE: ft/50/-3. Occasional mild range bp's but mostly normotensive, benign exam. Reassuring assessment overall. care: Good care with Dr. Reynaga PMhx/PNC significant for: anemia, THC use in first trimester, GHTN now pre-eclampsia without severe features Plan: -Admit to L&D -Establish IV, routine labs -CEFM -Regular diet [id number], then clear liquid diet in labor -Security Incident Response Specialist/consent re: iol and -GBS status: negative -Will initiate IOL with: cytotec PV -Close eye to bp's. Would initiate IV MgSO4 and give IV anti-HTN meds if she develops recurrent severe range bp's. -Anticipate -Safe to proceed Jeri Patterson MD (2) Encounter for induction of labor: Status: Acute (3) Normal in multigravida in third trimester: Status: Acute (1) Post-dates Qualifiers: Post-term type: 40-42 weeks gestation Qualified Code(s): O48.0 - Post-term
--- NOTE | 2025-02-01 07:05 | PD.LDPN ---
Documentation for date of: 02/01/25 OB Labor Progress Note Pelvic Exam Dilation (cm): 3 Effacement (%): 75 station: -2 Contractions Monitor mode: External Contraction frequency: q2-3 min Contraction intensity: Mild Status status: Category l Assessment and Plan Comments: Intrapartum Note Patient starting to have discomfort with ctx, uncertain if she will want epidural or not, has some concerns. She has been receiving PV cytotec and due for next dose. Vitals wnl, normotensive overall Cat I FHRT Ctx q2-3min SCE: /-2. Threaded cook flor ballon through cervix and began to inflate- AROM, copious clear fluid, occurred and so balloon deflated and removed. Cervix then 75/-2. head well applied to cervix. Will initiate IV pitocin and titrate per protocol Discussed patient's concerns regarding epidural and she feels better about receiving one later in labor if she feels she needs it Will continue to closely monitor CEFM Safe to proceed Jeri Patterson MD
[2025-02-01] MEDS: RINGERS LACTATED 1000 ML 1,000 ML 125 ML IV ×3 (08:41→15:02)
[2025-02-01] MEDS: OXYTOCIN in NS 30 units 30 UNIT/500 ML BAG IV (10:24)
[2025-02-01] MEDS: AMPICILLIN/SULBAC INJ 3 GM in SODIUM CHLORIDE 0.9% (POP) 100 ML IV (19:39)
[2025-02-01] MEDS: ACETAMINOPHEN IVPB 1,000 MG/100 ML VIAL 250 MG IV (19:40)
--- NOTE | 2025-02-01 20:51 | PD.LDPN ---
Documentation for date of: 02/01/25 OB Labor Progress Note Pelvic Exam Dilation (cm): 10 Effacement (%): 100 station: +2 Amniotic membrane status: Leaking Contractions Monitor mode: External Contraction frequency: 1-5 Contraction intensity: Moderate Status status: Category ll Assessment and Plan Comments: Notified by nurse of patient having temp 100.8F and maternal pulse 100's. No tachycardia. Tylenol 1000mg IV x1 and Unasyn 3g IV Q6hr ordered for new dx chorioamnionitis. Patient pushing well, anticipate soon Jeri Patterson MD
[2025-02-01] MEDS: MINERAL OIL 30 ML UDC TOP (21:40)
[2025-02-01] MEDS: OXYTOCIN in NS 20 units 20 UNIT/1,000 ML BAG 125 UNIT IV (21:48)
--- NOTE | 2025-02-01 23:03 | OBDSUM_ITS ---
Data (Marie) Data Hx Section: No : 2 Term: 0 : 0 Livin Abortions: Spontaneous & Theraputic: 1 Delivery Data (Marie) Labor Data Initiation of labor: Induction Induction/Augmentation Agent: Cytotec-Vaginal and Pitocin ROM date: 02/01/25 ROM time: 06:30 Amniotic membrane rupture type: Artificial Amniotic fluid description: Clear Delivery Data Onset of labor date: 02/01/25 Onset of labor time: 06:30 Complete dilation date: 02/01/25 Complete dilation time: 19:00 delivery date: 02/01/25 [place] delivery time: 21:44 Placenta delivery date: 02/01/25 Placenta delivery time: 21:50 Stage 1 total time: Labor - Stage 1 Duration 12 hours and 30 minutes Delivered by: Jeri Patterson Delivery nurse: DANIELLE Price [place] nurse: DANIELLE Clements Net Lead Architect at delivery: No Support person(s) at delivery: FOB AND COUSIN OF PATIENT IN DELIVERY ROOM Delivery Method Delivery method: Normal Vaginal Delivery Presentation: Vertex Anesthesia Type Anesthesia Type: Epidural Placenta Placenta delivery description: Spontaneous Cord blood sent to lab: Yes cord blood collection: Cord Blood Type Episiotomy Episiotomy description: None EBL Estimated blood loss (ml): 300 Umbilical Cord cord description: 3 Vessels Additional Procedures Francia is a 24yo s/p uncomplicated at 40&3wk after undergoing IOL for pre-eclampsia withOUT severe features, delivering at 2144 on 02/01/2025. On presentation, SCE was ft/50/-3. She progressed with cytotec and then pitocin augmentation to C/C/0 at which point she began pushing. She received an epidural in labor. With good maternal pushing efforts, 's head delivered OA and restituted CA. Double nuchal cord reduced. Left anterior shoulder delivered easily followed by posterior shoulder and corpus. Infant had spontaneous cry and was vigorous. Apgars 8/9. Infant placed on maternal abdomen where nose/mouth were suctioned and infant dried/stimulated. After approximately 1 minute, cord was clamped x2 and cut by FOB. Cord blood collected for typing. With fundal massage and cord traction, placenta delivered spontaneously and intact with 3 vessel centrally inserted cord. Bimanual massage performed and IV pitocin given per protocol with fundus then firm at u-2cm and hemostasis noted. Inspection of perineum and vagina revealed superficial bilateral labial lacerations and a 4th degree perineal laceration. There was only a very small (1cm) portion of rectal mucosal involvement, which was repaired to the anal verge with 4-0 monocryl. Next the internal and external anal sphincters were repaired with figures of 8 using 2-0 vicryl in end-to-end fashion. A 3-0 vicryl was then used in running fashion to repair the remaining 2nd degree laceration in routine fashion. The vaginal/labial portion of the laceration was tricky to repair as it involved shearing of the right sidewall up and away from the left sidewall and required careful reapproximation of the tissues so that the portion of the labia that had also sheared away was placed exactly where it arose from. This was all meticulously done. Top glove placed and rectal exam was performed which showed adequate repair with no button holes and no suture perforations through the rectal mucosa. Top glove removed. Finally the superficial labial lacerations were repaired with 4-0 vicryl in running fashion. Total reapproximation and hemostasis achieved. All counts correct x2. Discussed importance of abstinence for 6 weeks, exam of the area in 2 weeks at visit, avoiding constipation with fiber/hydration, colace Rx. Patient has been receiving unasyn for chorioamnionitis. Will give 2g IV ancef for OASIS prophylaxis. Mom and were doing well when I left the room. Jeri Patterson MD Data (Marie) [place] Data order: 1 's gender: Male Identification band number: [id number] weight (gms): 3390 g Weight (pounds): 7 lbs and 7.6 ozs [place] length: 50.8 cm 1 minute: 8 5 minutes: 9 10 minutes: 9
[2025-02-01] MEDS: BENZO/LANO/ALOE (Dermoplast) 60 GM CAN 1 SPRAY TOP (23:06)
[2025-02-01] MEDS: IBUPROFEN TAB 400 MG TABLET 800 MG PO (23:06)
[2025-02-02] VITALS (7 sets, daily range): BP systolic 128–147; BP diastolic 72–97; PULSE 71–97; RESP 16–19; TEMP 36.7–37.1; O2SAT 96–99
[2025-02-02] MEDS: ceFAZolin/D5W 2 GM IV 2 G/100 ML BAG IV (00:26)
[2025-02-02] MEDS: ACETAMIN/CAFF/BUTAL (Fioricet) 1 TAB PO (00:49)
[2025-02-02] MEDS: HYDROcodone/APAP 5/325 TABLET 1 TAB PO ×3 (03:33→14:42)
[2025-02-02 05:55] LABS: Basophils % (Auto) 0 % (0-2.5); Eosinophils % (Auto) 0 % (0-10); Hematocrit 27.3 % (36.0-46.0); Hemoglobin 8.9 g/dL (12.0-16.0); Immature Granulocytes % (Auto) 0 % (0-0); Immature Granulocytes Auto 0.07 Thou/mm3 (0.00-0.00); Lymphocytes # (Auto) 1.3 Thou/mm3 (1.0-4.8); Lymphocytes % (Auto) 7 % (10-50); Mean Corpuscular HGB Conc 32.6 g/dl (31.0-37.0); Mean Corpuscular Hemoglobin 24.1 pg (25.0-35.0); Mean Corpuscular Volume 74 fL (80-100); Monocytes # (Auto) 1.3 Thou/mm3 (0.0-0.8); Monocytes % (Auto) 7 % (0-12); Neutrophils # (Auto) 15.2 Thou/mm3 (1.8-7.7); Neutrophils % (Auto) 85 % (37-80); Nucleated Red Blood Cell % 0 /100 WBC (0); Platelet Count 203 Thou/mm3 (140-440); RDW Standard Deviation 47.8 fL (36.4-46.3); Red Blood Count 3.69 Miln/mm3 (4.00-5.20); White Blood Count 17.9 Thou/mm3 (3.6-11.0)
[2025-02-02] MEDS: DOCUSATE SOD 100 MG CAPSULE PO ×2 (08:19→20:28)
[2025-02-02] MEDS: FERROUS SULF 325 MG TABLET PO (11:26)
[2025-02-02] MEDS: PRENATAL VITAMIN/FE FUM/FA TABLET 1 TAB PO (11:26)
--- NOTE | 2025-02-02 11:56 | PC.SS ---
Lora DUMONT met with patient face-to face to do initial assessment due to testing positive for THC. Lora DUMONT introduced herself, role in the agency, reason for visit, and discussed limits of confidentiality. Patient appeared to be alert and oriented, to place time and situation. Patient robin Spears is a 24-Year-old Female admitted to the hospital to deliver her son, who was currently at bedside with patient.? Patient reported that she resides at home with the infant?s father, Ronnie Villanueva Prior to admission patient reported, she was independent with ADL?s. Patient reported that she receives, Food-stamps and WIC. Patient states it's her first child. Patient denies any history or current domestic violence or child welfare services involvement. lora DUMONT addressed patient in regards to her THC use. Patient reported that she smokes Marijuana 2-3 times a week, due to her having nausea and Insomnia and reports it helps; however, patient stated she would like to stop marijuana use. Patient reports her PCP, Mallika Stanley was aware that she was smoking Marijuana and would consult with her every follow up appointment. ?The Patient reports she has all needed supplies for the upon discharge. Patient reports she will be formula and breast feeding the infant. Lora DUMONT informed patient that CPS reports was made and informed her that CPS would be following up with her after Discharge, patient verbalized understanding. Lora DUMONT provided psycho education regarding post- Depression, as well as Community resources information. TIM paulino, contacted CPS and spoke to Sameer Sloan, [facility] Student faxed CPS report.
--- NOTE | 2025-02-02 20:22 | ESPR_ITS ---
Subjective Subjective Interval history: The patient is a 24-year-old -0-1-1 status post vaginal delivery yesterday by Dr. Patterson. The patient unfortunately had a partial fourth degree laceration and a bit of a difficult repair. Today the patient is resting comfortably in bed. She has approximately 6 family members at bedside. Patient states her bottom is sore but she is tolerating this well with ice packs and oral pain medications. She usually sees Mallika Stanley for her care and will follow-up in approximately 2 weeks for a perineal check. Patient is aware of her fourth degree laceration and that she might need a with her next . The patient was given excellent instructions by Dr. Patterson. She is taking stool softeners. She reports minimal lochia. She denies fevers or chills and she is working on breast-feeding. Exam Vital Signs Temp Pulse Resp BP Pulse Ox O2 Del Method 98.3 F 79 18 131/78 H 98 Room Air 02/02/25 16:24 02/02/25 16:24 02/02/25 16:24 02/02/25 16:24 02/02/25 16:24 02/02/25 16:24 Narrative Exam Patient is alert and oriented x 3 in no apparent distress. Fundus is firm. Perineal exam deferred secondary to multiple family members at bedside in no complaints at this time. Objective Labs 02/02/25 05:10 01/31/25 20:33 Labs: Laboratory Results - last 24 hr 02/02/25 05:10 WBC 17.9 H D RBC 3.69 L Hgb 8.9 L Hct 27.3 L MCV 74 L MCH 24.1 L MCHC 32.6 RDW Std Deviation 47.8 H Plt Count 203 D Neut % (Auto) 85 H Lymph % (Auto) 7 L [place] % (Auto) 7 Eos % (Auto) 0 Baso % (Auto) 0 Neut # (Auto) 15.2 H Lymph # (Auto) 1.3 [place] # (Auto) 1.3 H Eos # (Auto) 0.0 Baso # (Auto) 0.0 Immature Gran # (Auto) 0.07 H Absolute Nucleated RBC 0.00 Immature Gran % 0 Nucleated RBC % 0 Assessment & Plan Problem List (1) Post-dates : Status: Acute (2) Fourth degree laceration of perineum during delivery, : Status: Acute Assessment and plan: Patient is doing well. She will follow-up in the office in 2 weeks for perineal exam. She is to call with any questions or concerns. She is to take stool softeners. Sitz bath's were discussed. (3) Term delivered: Status: Acute Assessment and plan: Patient is doing well. She is working on breast-feeding. Will recheck a CBC in the morning as her hemoglobin dropped to 8.9. Time Spent With Patient Time: Total time spent is greater than 50% in coordination of care (as documented) at patient's floor/unit and/or counseling patient: Time with patient: less than 15 minutes
[2025-02-02] MEDS: IBUPROFEN TAB 400 MG TABLET 800 MG PO (20:28)
[2025-02-03 04:55] VITALS: BP 132/85; PULSE 80; RESP 18; TEMP 36.9; O2SAT 99
--- NOTE | 2025-02-03 07:18 | PD.LDPPPRG ---
Subjective Subjective Interval history: Delivery type: Induction of labor with , patient sustained out fourth degree laceration that was repaired, doing well without any problems Patient doing well this morning. No acute complaints. Ambulating, tolerating p.o. and voiding without difficulty. HTN/Pre-Eclampsia screen: No chest pain, shortness of breath, headache, visual changes, epigastric or right upper quadrant pain. Breast-feeding, lochia diminishing. Bowel: Flatus+/ BM Exam Vital Signs Temp Pulse Resp BP Pulse Ox O2 Del Method 98.4 F 80 18 132/85 H 99 Room Air 02/03/25 04:55 02/03/25 04:55 02/03/25 04:55 02/03/25 04:55 02/03/25 04:55 02/03/25 04:55 Constitutional Constitutional: no acute distress Routine HEENT Exam Head: Present normocephalic and atraumatic Eye: Present EOMI and PERRL ENT: Present mucous membranes moist Routine Neck Exam Neck: Present supple and trachea midline Routine Respiratory Exam Respiratory: Present chest non-tender, lungs clear, normal breath sounds and no resp distress Routine Cardiovascular Exam Cardiovascular: Present RRR Routine Abdominal Exam Abdominal: Present soft and normoactive bowel sounds Routine Extremities Exam Extremities: Present full ROM Routine Skin Exam Skin: Present intact, dry and warm Routine Neurological Exam Neurological: Present alert, oriented X3 and CN II-XII intact Routine Psychiatric Exam Psychiatric: Present normal affect and normal thought process Objective Labs 02/02/25 05:10 01/31/25 20:33 Assessment & Plan Problem List (1) Post-dates : Status: Acute (2) Fourth degree laceration of perineum during delivery, : Status: Acute (3) Term delivered: Status: Acute Assessment and plan: PPD/POD#2 1. Continue routine care 2. Transition to PO meds. 3. Encourage to ambulate/ breast-feed 4. Anticipate discharge home today. 5. Patient will require close follow-up to monitor her laceration Time Spent With Patient Time: Total time spent is greater than 50% in coordination of care (as documented) at patient's floor/unit and/or counseling patient:
--- NOTE | 2025-02-03 07:19 | ESDS_ITS ---
DS: Providers Provider Date of admission: 01/31/25 20:05 Primary care physician: Physician No Primary/Family Admitting Provider: Jeri Patterson MD Attending Provider on Admission: Jese Reynaga MD Consults: 02/01/25 23:01 Referral Routine Comment: Attending Provider on DC: Jese Reynaga MD Discharging Provider: Jese Reynaga MD DS: Diagnosis Discharge Diagnosis (1) Term delivered: Status: Acute (2) Fourth degree laceration of perineum during delivery, : Status: Acute (3) Encounter for induction of labor: Status: Acute (4) Post-dates : Status: Acute Problem List Completed Was Problem List Reviewed/Reconciled?: Yes Summary/Hosp Course Brief History: Patient presents for scheduled induction of labor. Indication: GHTN. No regular/painful ctx. No LOF. No vaginal bleeding. Normal movement. No COLÓN, vision changes, RUQ pain. Peripartum Data Delivery Method: Normal Vaginal Delivery Episiotomy Description: None Time Spent with Patient Time attestation: Total time spent providing and/or coordinating discharge services: Exam Vital Signs Temp Pulse Resp BP Pulse Ox O2 Del Method 98.4 F 80 18 132/85 H 99 Room Air 02/03/25 04:55 02/03/25 04:55 02/03/25 04:55 02/03/25 04:55 02/03/25 04:55 02/03/25 04:55 Discharge Plan Plan Patient Disposition: HOME (Self Care) Patient condition on transfer: Stable Prescriptions/Referrals Prescriptions/Med Rec: New docusate sodium 100 mg Capsule 100 mg PO BID 14 Days Qty: 28 0RF ibuprofen 800 mg tablet 800 mg PO Q8H PRN (Reason: See Comments) 10 Days Qty: 20 0RF polyethylene glycol 3350 [ClearLax] 17 gram powder in packet 17 g PO QDAY Qty: 14 0RF amoxicillin-pot clavulanate 875-125 mg tablet 1 tab PO BID 7 Days Qty: 14 0RF No Action Classic 28 mg iron- 800 mcg tablet 1 tab PO .q day ferrous sulfate 325 mg (65 mg iron) tablet 325 mg PO .q day Patient Comments: TAKE 1 TABLET BY MOUTH TWICE A DAY Referrals: No Primary/Family,Physician [Primary Care Provider] - Jese Reynaga MD [Physician] - Patient/Caregiver Discharge Instructions Discharge Activity: activity as tolerated and other Other Discharge Activity Instructions:: complete vaginal rest and no heavy lifting more than 10 pounds for 6 weeks. get good fiber intake and stay well hydrated to avoid constipation. take stool softener twice daily. Other Discharge Diet Instructions: regular diet Education Materials: After a Vaginal , After Delivery [place] Concerns, Breast Care After , Incision Care After Vaginal , Nutrition While , Understanding Depression, : Caring for Yourself, Feel Healthy After Print Language: Polish Activity Restrictions/Additional Instructions: Follow up with Mallika in 2 weeks. Call office for appointment. Perineal repair needs to be examined at this visit to ensure it is healing appropriately. Stand Alone Forms: Tasha Award Info., Patient Portal Info Letter Planned Discharge Date 02/03/25 (4) Post-dates Qualifiers: Post-term type: 40-42 weeks gestation Qualified Code(s): O48.0 - Post-term
[2025-02-03 07:40] LABS: Basophils % (Auto) 0 % (0-2.5); Eosinophils # (Auto) 0.1 Thou/mm3 (0.0-0.5); Eosinophils % (Auto) 1 % (0-10); Hematocrit 25.1 % (36.0-46.0); Immature Granulocytes % (Auto) 1 % (0-0); Immature Granulocytes Auto 0.07 Thou/mm3 (0.00-0.00); Lymphocytes # (Auto) 1.6 Thou/mm3 (1.0-4.8); Lymphocytes % (Auto) 14 % (10-50); Mean Corpuscular HGB Conc 32.3 g/dl (31.0-37.0); Mean Corpuscular Volume 74 fL (80-100); Monocytes # (Auto) 0.6 Thou/mm3 (0.0-0.8); Monocytes % (Auto) 5 % (0-12); Neutrophils # (Auto) 9.1 Thou/mm3 (1.8-7.7); Neutrophils % (Auto) 79 % (37-80); Nucleated Red Blood Cell % 0 /100 WBC (0); Platelet Count 191 Thou/mm3 (140-440); RDW Standard Deviation 49.1 fL (36.4-46.3); Red Blood Count 3.38 Miln/mm3 (4.00-5.20); White Blood Count 11.4 Thou/mm3 (3.6-11.0)
[2025-02-03 07:47] LABS: Hemoglobin 8.1 g/dL (12.0-16.0)
[2025-02-03 08:30] VITALS: BP 148/95; PULSE 84; RESP 18; TEMP 36.9; O2SAT 99
[2025-02-03] MEDS: DOCUSATE SOD 100 MG CAPSULE PO (08:40)
[2025-02-03] MEDS: IBUPROFEN TAB 400 MG TABLET 800 MG PO (08:40)
[2025-02-03] MEDS: PRENATAL VITAMIN/FE FUM/FA TABLET 1 TAB PO (08:41)
[2025-02-03] MEDS: FERROUS SULF 325 MG TABLET PO (08:41)
== END 2025-02-03 11:15 | disposition home or self-care (01) | DRG 542 ==
LOC: S4SX 02-01 23:40 → S4NX 02-02 00:29
PROVIDERS: Obstetrics & Gynecology; Admitting Provider Obstetrics & Gynecology; Visit Provider Obstetrics & Gynecology
DX: O48.0 Post-term pregnancy (principal); Z37.0 Single live birth; Z3A.40 40 weeks gestation of pregnancy; O14.04 Mild to moderate pre-eclampsia, complicating childbirth; O69.81X0 Labor and delivery complicated by cord around neck, without compression, not applicable or unspecified; O70.3 Fourth degree perineal laceration during delivery; Z87.891 Personal history of nicotine dependence
CPT/HCPCS: 36415; 59409; 80053; 80307; 81001; 82570; 84156; 84550; 85025; 85384; 85610; 85730; 86780; 86850; 86900; 86901; 94762; J0131; J0295; J0689; J2405; J2590; J2795; J3010; J7120; A9270

== ENCOUNTER 2025-02-22 10:31 | Outpatient (AMB) | payer MEDICAID, SELFPAY ==
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
[2025-02-22 10:45] VITALS: BP 141/90; PULSE 82; RESP 17; TEMP 36.4; O2SAT 98
== END 2025-02-22 11:11 | disposition home or self-care (01) ==
LOC: HODSOBC 10:31
PROVIDERS: Supervising Provider Advanced Practice Midwife; Visit Provider Advanced Practice Midwife
DX: Z39.2 Encounter for routine postpartum follow-up (principal); O70.3 Fourth degree perineal laceration during delivery; O90.89 Other complications of the puerperium, not elsewhere classified; R21 Rash and other nonspecific skin eruption

== ENCOUNTER 2025-03-08 11:07 | Outpatient (AMB) | payer MEDICAID, SELFPAY ==
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
[2025-03-08 11:17] VITALS: BP 128/84; PULSE 59; RESP 18; TEMP 36; O2SAT 98
== END 2025-03-08 11:51 | disposition home or self-care (01) ==
PROVIDERS: Supervising Provider Advanced Practice Midwife; Visit Provider Advanced Practice Midwife
DX: Z39.2 Encounter for routine postpartum follow-up (principal); O90.89 Other complications of the puerperium, not elsewhere classified; R21 Rash and other nonspecific skin eruption